=== PATIENT | female | born 1970 | race Caucasian/White ===

== ENCOUNTER 2017-02-21 20:16 | Emergency (ER) | payer OTHER ==
--- NOTE | ~2017-02-21 | CR63 ---
[facility] A Service of [facility] & [facility] RADIOLOGY TEXT RESULTS PATIENT: ESTEBAN NEWBY LOCATION: SED : 74 UNIT #: [id number] AGE: [address]: AJAY IBARRA SEX: F ORDER DR: [id number] [address] [address] [id number] MR#: [id number] Acc #: [id number] NAME: ESTEBAN NEWBY : 1970 SEX: F STUDY DATE/TIME: 02/21/2017 20:55 UNIT: SED ROOM: STUDY DESCRIPTION: CR Chest 2 View Attending Physician: Ajay Ibarra Ordering Physician: Ajay Ibarra Primary Care Physician: Odalys Barker M.D. MEDICAL IMAGING REPORT This report is preliminary unless electronic signature is present. EXAM Two-view chest, 02/21/2017 HISTORY 46-year-old female with chest pain for 2 days. COMPARISON Chest 06/07/2016 FINDINGS 2 views of the chest demonstrate clear lungs. No pleural effusion or pneumothorax. Heart size and mediastinum are normal. Pulmonary vasculature normal. IMPRESSION No acute cardiopulmonary findings. Dictated by... Jakob Kang M.D. THIS IS AN ELECTRONICALLY VERIFIED REPORT Jakob Kang M.D. at 02/22/2017 6:14 PM Lucy TD: 02/21/2017 23:47 JOB #: [id number] MEDICAL IMAGING REPORT Page 1 of 1
--- NOTE | ~2017-02-21 | EKG ---
PATIENT: ESTEBAN NEWBY UNIT #: [id number] Ventricular Rate: 83 BPM Atrial Rate: 83 BPM P-R Interval: 130 ms QRS Duration: 82 ms Q-T Interval: 382 ms QTC Calculation(Bezet): 448 ms P [place]: 45 degrees Calculated R [place]: 43 degrees Calculated T [place]: 50 degrees Diagnosis Line: Normal sinus rhythm Diagnosis Line: Normal ECG Diagnosis Line: When compared with ECG of 07-JUN-2016 17:38, Diagnosis Line: No significant change was found Diagnosis Line: Confirmed by NOAM AVLDEZ MD ([id number]) on Diagnosis Line: 02/24/2017 8:36:40 AM INTERPRETING MD: JOSÉ MIGUEL ANDERSEN
[~2017-02-21 20:16] MED LIST: ACETAMINOPHEN PO; ADVIL200 M1 PO; K-DUR20 ME1 PO; MACROBID100 M1 PO; NO MEDICATIONS; PERCOCET PO; PREVACID15 MG DOB; TYLENOL #3 PO; VICODIN 5/500 T1 TAB PO; VOLTAREN50 MG PO; ZOLOFT50 MG PO
[2017-02-21 21:21] LABS: BASOPHIL# 0.1 X10e3 (0-0.3); EOSINOPHIL# 0.2 X10e3 (0-0.7); EOSINOPHIL% 1.6 % (0.0-7.0); HEMATOCRIT 41.1 % (35.0-45.0); HEMOGLOBIN 14.1 gm/dL (12.0-16.0); LYMPHOCYTE# 4.1 X10e3 (1.0-3.5); LYMPHOCYTE% 37.4 % (17.0-45.0); MEAN CELL VOLUME 90.2 FL (83-96); MEAN CORPUSCULAR HEMOGLOBIN 30.9 PG (28-34); MEAN CORPUSCULAR HGB CONC 34.3 g/dL (30-36); MEAN PLATELET VOLUME 9.5 FL (6.5-11.5); MONOCYTE# 0.5 X10e3 (0-1.0); MONOCYTE% 4.6 % (3.0-12.0); NEUTROPHIL# 6.1 X10e3 (1.5-7.1); NEUTROPHIL% 55.4 % (40-75); PLATELET COUNT 243 X10e3 (140-420); RED BLOOD COUNT 4.56 X10e (3.90-5.30); RED CELL DISTRIBUTION WIDTH 13.6 % (11.0-15.5); WHITE BLOOD COUNT 11.1 X10e3 (4.0-10.5)
[2017-02-21 21:23] LABS: DIFF IND NO
[2017-02-21 21:31] LABS: INR 0.9; PROTHROMBIN TIME (PATIENT) 10.7 SECONDS (9.5-12.4)
[2017-02-21 21:36] LABS: POC - CKMB <1.0 ng/mL (0.0-7.9)
[2017-02-21 21:37] LABS: POC - TROPONIN <0.05 ng/mL (<=0.05)
[2017-02-21 21:38] LABS: PARTIAL THROMBOPLASTIN TIME 28.2 SECONDS (25.6-38.1)
[2017-02-21 21:40] LABS: ALBUMIN SERUM 3.7 g/dL (3.5-5.0); ALKALINE PHOSPHATASE 81 U/L (32-92); ALT (SGPT) 33 U/L (10-40); AST (SGOT) 21 U/L (10-42); BILIRUBIN,TOTAL 0.3 mg/dL (0.2-2.0); BLOOD UREA NITROGEN 9 mg/dL (9-23); BUN/CREATININE RATIO 11.25; CALCIUM SERUM 8.8 mg/dL (8.4-10.2); CARBON DIOXIDE 25 mmol/L (22-31); CHLORIDE 108 mmol/L (100-111); CREATININE SERUM 0.8 mg/dL (0.6-1.4); GLOM FILT RATE Estimated 89.7 mL/min (>60); GLUCOSE FASTING 103 mg/dL (70-110); POTASSIUM 3.3 mmol/L (3.5-5.1); PROTEIN TOTAL SERUM 6.7 g/dL (6.0-8.3); SODIUM 139 mmol/L (135-145)
[2017-02-21 21:42] LABS: BILIRUBIN, DIRECT <0.1 mg/dL (0.0-0.2); BILIRUBIN,INDIRECT 0.2 mg/dL (0.0-0.9)
[2017-02-21 23:09] LABS: POC - CKMB <1.0 ng/mL (0.0-7.9); POC - TROPONIN <0.05 ng/mL (<=0.05)
== END 2017-02-21 23:40 | disposition home or self-care (01) ==
LOC: SED 20:16
PROVIDERS: Physician Assistant
DX: R07.9 Chest pain, unspecified (principal); R03.0 Elevated blood-pressure reading, without diagnosis of hypertension; F41.8 Other specified anxiety disorders; F17.210 Nicotine dependence, cigarettes, uncomplicated; Z90.49 Acquired absence of other specified parts of digestive tract; Z88.0 Allergy status to penicillin
CPT/HCPCS: 36415; 71020; 80048; 80076; 82553; 84484; 85025; 85610; 85730; 93005; 99285